=== PATIENT | male | born 1995 | race Caucasian/White ===

== ENCOUNTER 2017-11-25 13:35 | Emergency (ER) | payer SELFPAY ==
[~2017-11-25] VITALS: Ht 175.3 cm; Wt 86.2 kg
[2017-11-25 14:31] VITALS: BP 130/59; Ht 175.3 cm; Wt 86.2 kg
== END 2017-11-25 16:05 | disposition left against medical advice (07) ==
LOC: ED 13:35
DX: Z53.21 Procedure and treatment not carried out due to patient leaving prior to being seen by health care provider (principal)

== ENCOUNTER 2019-11-20 14:34 | Emergency (ER) | payer SELFPAY ==
[~2019-11-20] VITALS: Ht 94 cm; Wt 87.1 kg
[2019-11-20 14:42] VITALS: Ht 94 cm; Wt 87.1 kg
[2019-11-20 17:42] VITALS: BP 115/60
== END 2019-11-20 17:43 | disposition home or self-care (01) ==
LOC: ED 14:34
DX: N23 Unspecified renal colic (principal)
CPT/HCPCS: 87491; 87591; Q0162